=== PATIENT | female | born 1975 | race Caucasian/White ===

== ENCOUNTER → 2017-05-09 | Outpatient (CLI) | payer BC, OTHER | LOC: FIMAGING 14:28 | PROVIDERS: ATTEND Nurse Practitioner Adult Health | DX: R31.9 Hematuria, unspecified (principal); R10.9 Unspecified abdominal pain ==

== ENCOUNTER 2018-02-18 12:44 | Emergency (ER) | payer OTHER ==
[2018-02-19] MEDS ORDERED: HYDROmorphONE/DILAUDID 1 MG/ML INJ ONE (03:15)
[2018-02-19 06:09] VITALS: BP 109/78
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
== END 2018-02-18 13:50 | disposition home or self-care (01) ==
LOC: MERGE 12:44
DX: R53.1 Weakness (principal); F41.0 Panic disorder [episodic paroxysmal anxiety]; F43.9 Reaction to severe stress, unspecified
CPT/HCPCS: 82435-PO; 82565-PO; 82947-PO; 84132-PO; 84295-PO; 84520-PO; 85014-PO; J1170

== ENCOUNTER 2018-09-19 08:03 | Observation (INO) | payer OTHER ==
[2018-09-19 08:36] LABS: PLATELET COUNT 268 10^3/uL (150-400)
[2018-09-19] MEDS ORDERED: FAMOTIDINE 20 MG TAB PO ONE (08:49)
--- NOTE | 2018-09-19 08:58 | EDPHY ---
H & P Stated Complaint: SOB, Tachycardia Time Seen by Provider: 09/19/18 08:22 HPI/ROS: CHIEF COMPLAINT: Rapid heart HISTORY OF PRESENT ILLNESS: This is a 43-year-old female with history of factor 5 Leiden, PE, and tachycardia for which she underwent an ablation in 1991 and again in 2012. She is on Eliquis and is compliant with her medication. She notes a rapid heart rate over the past week. Five days ago she was experiencing chest pain, nausea, and diaphoresis. She saw her primary care physician who referred her to Cardiology. She saw Dr. Paez, cardiology, who ordered blood work and Holter monitor that is scheduled to be placed at 1:00 p.m. today. She has subsequently been notified that her TSH is low at 0 0.016 ( free T4 has been ordered). She has not established care with an liquid center assembler in this area. She presents today with persistent rapid heart rate. She says that she has had heart rates at home up to the 150s. She is experiencing substernal and left- sided upper chest pain, different from chest pain that she has experienced in the past with either PE or tachycardia. She feels short of breath. The pain is not pleuritic. She has had a mild cough. Last night she noticed some blood that she thought might be coming from her mouth but now wonders whether she could of been coughing up blood. She tells me that in the past she has had an elevated ADAN. REVIEW OF SYSTEMS: A ten system review of systems was performed and is negative with the exception of the items mentioned in the HPI. Past medical history: 1. Factor 5 Leiden 2. PE 1-1/2 years ago 3. TIA 4. Tachyarrhythmia 5. Anxiety disorder Past surgical history: 1. Cardiac ablation x2 2. Left knee meniscectomy 3. Left inguinal hernia repair Family history: Social history: She lives with her . They moved to [place] from [place], [place] about a year and half ago. She does not use tobacco products. She rarely drinks alcohol. General Appearance: Alert. Vital signs reviewed. Eyes: Pupils equal and round, no conjunctival injection, no discharge. Anicteric. I do not appreciate proptosis. ENT, Mouth: Mucous membranes are moist, no oropharyngeal erythema or edema. Neck: No lymphadenopathy, supple. Respiratory: Lungs are clear to auscultation; no wheezes, rales, or rhonchi. Cardiovascular: Tachy at around 110, regular; no murmur, rub, or gallop. Gastrointestinal: Abdomen is soft and nontender, no masses or organomegaly, bowel sounds normal. Skin: Warm and dry, no rashes on exposed skin, normal color. Back: Nontender to palpation over the thoracolumbar spine. No CVAT. Extremities: No lower extremity edema, no calf tenderness or swelling. Neurological: Alert and oriented. Moving all four extremities easily and equally. Cranial nerves II through XII are examined and are intact (visual acuity not tested). Sensation is intact to light touch over all 4 extremities. Psychiatric: Normal affect. - Personal History Current Tetanus/Diphtheria Vaccine: Yes Current Tetanus Diphtheria and Acellular Pertussis (TDAP): Yes - Medical/Surgical History Hx Asthma: No Hx Chronic Respiratory Disease: No Hx Diabetes: No Hx Cardiac Disease: Yes Hx Renal Disease: No Hx Cirrhosis: No Hx Alcoholism: No Hx HIV/AIDS: No Hx Splenectomy or Spleen Trauma: No Other PMH: PE, TIA,DVT, CARDIAC AEBLATION-AFIB,SVT, L HERNIA REPAIR, anxiety/ panic, clotting disorder factor 5 ley[place] - Social History Smoking Status: Never smoked Constitutional: Initial Vital Signs Temperature (C) 37.2 C 09/19/18 08:11 Heart Rate 139 H 09/19/18 08:11 Respiratory Rate 20 09/19/18 08:11 Blood Pressure 127/75 H 09/19/18 08:11 O2 Sat (%) 96 09/19/18 08:11 O2 Delivery Mode Room Air Allergies/Adverse Reactions: levofloxacin [From Levaquin] Allergy (Severe, Verified 09/19/18 11:19) codeine Allergy (Intermediate, Verified 09/19/18 11:19) Vomiting Sulfa (Sulfonamide Antibiotics) Allergy (Intermediate, Verified 09/19/18 11:19) Vomiting Home Medications: Medication Instructions Recorded Apixaban [Eliquis] 2.5 mg PO DAILY 09/19/18 Medical Decision Making ED Course/Re-evaluation: Persistent tachyarrhythmia patient with history of SVT status post ablation x2. She also has history of factor 5 Leiden, PE, and recent lab work that suggests hyperthyroidism. It is unclear whether her rapid heart rate is indicative of hyperthyroid, recurrence of tachyarrhythmia, or PE. She does not use stimulants, does not appear dehydrated, no evidence of blood loss. CT angiogram obtained to rule out PE. No PE seen. TSH repeated here and low at 0.015. I reviewed the TSH and the free T4 that were obtained by her dental secretary. Consistent with hyperthyroidism. Heart rate has been over 100 during her stay in the emergency department but not over 110. Heart rate has been regular. EKG reviewed. Troponin within normal limits. CBC and chemistries reviewed and unconcerning. I do not suspect infection/fever or volume depletion as the explanation for her elevated heart rate. Patient would like to establish care with a dental secretary and liquid center assembler from [facility]. I spoke with Dr. Niurka Ramos, on-call for Cardiology, and she agrees that admission is appropriate in this setting. Cardiology will consult. The patient is being admitted to the hospitalist service. - Data Points Laboratory Results: Laboratory Results 09/19/18 08:20 09/19/18 08:20 Medications Given: Acetaminophen (Tylenol) 650 mg PO Q4 PRN PRN Reason: Pain, Mild/Fever, Can Take PO Stop: 03/18/19 15:14 Last Admin: 09/20/18 08:02 Dose: 650 mg Apixaban (Eliquis) 2.5 mg PO DAILY ABRAHAM Stop: 03/19/19 08:59 Last Admin: 09/20/18 08:03 Dose: 2.5 mg Atenolol (Tenormin) 25 mg PO DAILY ABRAHAM Stop: 03/18/19 14:59 Last Admin: 09/20/18 09:30 Dose: 25 mg Sodium Chloride (Ns) 1,000 mls @ 100 mls/hr IV CONT ABRAHAM Stop: 03/18/19 15:14 Last Admin: 09/19/18 16:06 Dose: 1,000 mls Methimazole (Tapazole) 5 mg PO DAILY ABRAHAM Stop: 03/18/19 15:14 Last Admin: 09/20/18 08:57 Dose: 5 mg Ondansetron HCl (Zofran) 4 mg IVP Q4 PRN PRN Reason: Nausea/Vomiting, Can't Take PO Stop: 03/18/19 15:14 Last Admin: 09/20/18 04:53 Dose: 4 mg Discontinued Medications Acetaminophen (Tylenol) 650 mg PO EDNOW ONE Stop: 09/19/18 09:35 Last Admin: 09/19/18 09:39 Dose: 650 mg Cosyntropin (Cortrosyn Syringe) 0.25 mg IVP DAILY@0600 ONE Stop: 09/20/18 06:01 Last Admin: 09/20/18 04:47 Dose: 0.25 mg Famotidine (Pepcid) 20 mg PO EDNOW ONE Stop: 09/19/18 08:50 Last Admin: 09/19/18 08:57 Dose: 20 mg Point of Care Test Results: Chemistry 09/19/18 08:24 POC Troponin I 0.00 ng/mL ng/mL (0.00-0.08) Departure - Departure Disposition: [facility] Inpatient Acute Clinical Impression: Supraventricular tachycardia, Hyperthyroidism determined by thyroid function test Condition: Good
[2018-09-19] MEDS ORDERED: ACETAMINOPHEN 325 MG TAB PO ONE (09:34)
[2018-09-19] MEDS ORDERED: IOPAMIDOL (ISOVUE 370) 100 ML BTL IV ONE (11:06)
[2018-09-19] MEDS ORDERED: ONDANSETRON 4 MG/2 ML VIAL IVP PRN (15:15)
[2018-09-19] MEDS ORDERED: NS 1,000 ML IV SCH (15:15)
--- NOTE | 2018-09-19 15:59 | GHP ---
DATE OF ADMISSION: 09/19/2018 CHIEF COMPLAINT: Palpitations. HISTORY: The patient is a 43-year-old female who comes to the emergency room complaining of chest pa in and fast heart rate. Her heart rate at home has been up to 130-150. She has a history of SVT, st atus post previous ablation. She has been having increasing symptoms over the last week. She has he at intolerance. She feels like an elephant is sitting on her chest. She describes it as a crushing, burning nonpleuritic pain. She has increased urinary frequency. She denies any weight gain or weig ht loss. There have been no bowel changes. She complains of heat intolerance and light sensitivity. Her hair is falling out. She has noticed her skin is tougher. Her throat feels raw. She has been having headache and vision changes, lots of light sensitivity. Coworkers have told her her right ey willy droops at times. She has severe headaches that sometimes wake her up from sleep. PAST MEDICAL HISTORY: 1. Heterozygous factor V Leiden with pulmonary embolus. 2. SVT, status post ablation x2. 3. Transient ischemic attack. 4. Anxiety. 5. Brain cyst. 6. Positive ADAN. 7. Viral encephalitis. 8. Ashkenazi Cheondoism heritage. PAST SURGICAL HISTORY: Left inguinal hernia. MEDICATIONS: Please see computerized record for full details. ALLERGIES: Levaquin and sulfa. SOCIAL HISTORY: No smoking. No alcohol. She lives with her . REVIEW OF SYSTEMS: Complete review of systems obtained. Review of systems negative regarding consti tutional, HEENT, GI, pulmonary, cardiovascular, , hematology, skin, musculoskeletal, endocrine, psy ch, except for positives and negatives as noted in HPI. FAMILY HISTORY: Her parents used a sperm donor in her conception. She has since done genetic testin g to find out that the donated sperm has Ashkenazi Cheondoism genetic traits. Her mom is [place]. PHYSICAL EXAMINATION: GENERAL: Well-developed, well-nourished female, in no acute distress. VITAL SIGNS: Temperature is 37.4, pulse 91, blood pressure 112/73, sat 96% on room air. EYES: Normal con junctivae. Pupils equal and reactive to light. Possible proptosis. ENT: Normal ears and nose. He aring intact. Normal lips and teeth. Oropharynx moist. NECK: Trachea midline. Positive thyromega ly. CHEST: Normal respiratory effort. LUNGS: Clear to auscultation bilaterally. CARDIOVASCULAR: Regular rate and rhythm. No murmur. No lower extremity edema. ABDOMEN: Soft, nontender. No hepat osplenomegaly. SKIN: Warm, dry, intact. No rash. MUSCULOSKELETAL: No cyanosis or clubbing. Stre ngth 5/5 upper and lower extremities. NEURO: Cranial nerves intact. Normal sensation to light touc h. PSYCH: Alert and oriented x3. Normal mood and affect. Normal judgment and insight. Normal nathalie ry. LABORATORY DATA: White count 6.5, hematocrit 42.7, platelets 268. Sodium 138, potassium 4.3, chlori de 101, bicarb 24, BUN 15, creatinine 0.66, glucose 132. Troponin negative. TSH is less than 0.015. Urinalysis is negative. Free T4 done as an outpatient was 2.57. EKG viewed by me. My personal in terpretation is normal sinus rhythm, no ST-T wave changes. CT angiogram of chest is negative for PE. ASSESSMENT/PLAN: 1. Hyperthyroidism. I suspect she may have Graves disease given her eye changes. Will check a thyr otropin receptor antibody and a thyroid ultrasound. Will start her on a low-dose beta taina for sy mptom control, atenolol 25 mg p.o. daily. She just received an IV contrast dose for her CT angiogram of chest to rule out pulmonary embolism, and I have concerns that this iodine load may throw her int o a thyroid storm. Will start her on methimazole now. She should follow up with Endocrinology as an outpatient for radioactive iodine. Will check a test. 2. Headaches with eyelid drooping. This is a concerning history. She does have an unclear history of a brain cyst. Will check an MRI of the brain. 3. Supraventricular tachycardia, status post ablation. We will watch her on telemetry. It is uncle ar if the current tachycardia episodes are recurrences of supraventricular tachycardia versus a sinus tachycardia driven by her underlying hyperthyroidism. We will check an echo. 4. History of pulmonary embolus. She has known factor V Leiden heterozygous. Will continue Eliquis . COR STATUS: Full. ADMISSION STATUS: Will admit to observation. We will re-evaluate her tomorrow regarding ongoing nee d for hospitalization. DVT PROPHYLAXIS: She is already on Eliquis. /[id number]/MODL
[2018-09-19] MEDS: ATENOLOL 25 MG TAB PO SCH (16:03)
[2018-09-19] MEDS: METHIMAZOLE 5 MG TAB PO SCH (16:12)
--- NOTE | 2018-09-19 16:37 | CPEKG ---
Test Reason : OPEN Blood Pressure : / mmHG Vent. Rate : 108 BPM Atrial Rate : 108 BPM P-R Int : 125 ms QRS Dur : 073 ms QT Int : 313 ms P-R-T Axes : 067 047 037 degrees QTc Int : 420 ms Sinus tachycardia Confirmed by Cristina Nobles ([id number]) on 09/19/2018 4:36:47 PM Referred By: Confirmed By:Cristina Nobles
--- NOTE | 2018-09-19 16:38 | ECHO ---
[email or web address] [address] [address] Main: [phone] Fax: [email or web address] Echocardiogram Name: KIANA CALIXTO MR#: [id number] Study Date: 09/19/2018 Study Time: 03:49 PM Date of : 1975 Age: 43 year(s) Height: 170.2 cm (67 in.) Weight: 74.84 kg (165 lb.) BSA: 1.86 m2 Gender: Female Examination: Echo Indication: Supraventricular Tachycardia Image Quality: Adequate Contrast: Requested by: Bell Nicholas BP: 112 mmHg/73 mmHg Heart Rate: Rhythm: Indication: Supraventricular Tachycardia Procedure Staff Baseball Scout: Kim Main [facility] Reading Physician: Chetan Burciaga MD Requesting Provider: Conclusions: No pericardial effusion. Preserved LV systolic function with ejection fraction of 66%. Right ventricular systolic pressure 32 mm of mercury. No significant valvular abnormalities by Doppler or 2 dimensional study. Measurements: Chambers Valvular Assessment AV/MV Valvular Assessment TV/PV Normal Normal Normal Name Value Range Name Value Range Name Value Range Ao Ximena (MM): 2.6 cm (2.2 cm-3.7 AV Vmax: 1.24 m/s (1 m/s-1.7 TR Vmax: 2.59 mm/s ( - ) cm) m/s) TR PGmax: 27 mmHg ( - ) IVSd (2D): 0.8 cm (0.6 cm-1.1 AV maxP mmHg ( - ) syst. PAP: 32 mmHg ( - ) cm) LVOT Vmax: 0.92 m/s (0.7 m/s-1.1 PV Vmax: 1.03 m/s (0.6 m/s-0.9 LVDd (2D): 4.2 cm (3.9 cm-5.3 m/s) m/s) cm) MV E Vmax: 0.58 m/s ( - ) PV PGmax: 4 mmHg ( - ) LVDs (2D): 2.8 cm (2.1 cm-4 MV A Vmax: 0.43 m/s ( - ) cm) MV E/A: 1.35 ( - ) LVPWd (2D): 0.8 cm ( - ) LVEF (BP): 66 % (>=55 %) RVDd(2D): 2.9 cm (1.9 cm-3.8 cmmm) Continued Measurements: Chambers Valvular Assessment AV/MV Valvular Assessment TV/PV Name Value Name Value Name Value LADs: 3.0 cm MV DecTime: 158 m/s CVP (est.): 5 mmHg LADs Lon.2 cm MV E' Septal: 0.09 m/s LA Area: 16.7 cm2 MV E/E' Septal: 6.50 LA Volume: 48 ml MV E/E' Lateral: 4.10 LA Volume Index: 25.8 ml/m2 Patient: KIANA CALIXTO Study Date: 09/19/2018 Page 1 of 2 03:49 PM TAPSE: 2.0 cm RA Area: 14.7 cm2 Findings: Left Ventricle: Normal size left ventricle. No LV hypertrophy. Normal global systolic LV function. EF is 66 %. No regional wall motion abnormality. Normal diastolic LV function. Right Ventricle: Normal size right ventricle. Left Atrium: The left atrium is normal in size. Right Atrium: The right atrium is normal in size. Mitral Valve: The mitral valve is normal in appearance and function. Trivial mitral valve regurgitation. No mitral stenosis is present. Aortic Valve: The aortic valve is tri-leaflet and functions normally. There is no aortic valve regurgitation. No aortic valve stenosis is present. Tricuspid Valve: The tricuspid valve is normal in appearance and function. Trivial to mild tricuspid valve regurgitation. Right ventricular systolic pressure measures 32mmHg. Borderline elevated pumonary artery pressure. Pulmonic Valve: The pulmonic valve is normal in appearance and function. There is no pulmonic regurgitation seen. Aorta: The aorta is normal. Normal size aortic root measuring 2.6 cm. IVC: Normal size and course of the IVC. Pericardium: No pericardial effusion. (No Signature Object) Patient: KIANA CALIXTO Study Date: 09/19/2018 Page 2 of 2 03:49 PM [id number]
[2018-09-19] MEDS ORDERED: GADOBUTROL 10 ML VIAL IVP ONE (18:03)
[2018-09-19] MEDS: ACETAMINOPHEN 325 MG TAB PO PRN (23:14)
--- NOTE | 2018-09-20 05:52 | GCON ---
DATE OF CONSULTATION: 09/19/2018 PRIMARY CREPE MACHINE OPERATOR: Dr. Carlene Gutierrez. CHIEF COMPLAINT: Chest pain and tachycardia. HISTORY OF PRESENT ILLNESS: We were asked by Dr. Nicholas to visit with Alysa. The patient is a josse y pleasant 43-year-old female with a history of atrial arrhythmia. Her previous cardiology care has been in [place], [place]. In 1991, she had SVT ablation. She then had an ablation for atrial tachycard ia in 2012. She reports no problems with coronary arteries or valves. Other history includes factor 5 Leiden, complicated by TIA and pulmonary embolism. For the past 6 months she has had intermittent chest discomfort and tachycardia. Initially, she thou ght this may be a resurgence of arrhythmia, but the symptoms were somewhat different. She has felt t ired and anxious, but she has not had a prior history of anxiety disorder. Over the past week or so she has felt worse. Her chest pain is described as pressure as well as a se nsation of burning into her throat. She feels that her heart is pounding. Even minimal activity cau ses an elevated heart rate up to 150 beats per minute. She has felt dyspneic. She has described hot flashes and overall fatigue. Her exercise tolerance is poor. She was seen early this week at the [facility] with some blood work and plans for a Armand r monitor. Her TSH came back quite low. Because her symptoms were worsening, she presented to the E [facility] today. She has been in sinus rhythm and sinus tachycardia, but TSH is indeed low with elevated sotero e T4 and free T3. She is admitted for further management and evaluation. REVIEW OF SYSTEMS: A 10-point review of systems is performed, notable for that which is outlined abo ve. Additionally, right before she reports an episode of right eyelid drooping with a visu al field cut and she felt that her face was drooping. This has resolved. She has also had headache. Otherwise, a full 10-point review of systems is negative. ALLERGIES: Levofloxacin, codeine, and sulfa. PAST MEDICAL HISTORY: 1. Atrial arrhythmia status post ablation x2 as detailed above. 2. Factor 5 Leiden with history of PE and stroke. 3. Seizure disorder during . 4. Migraine headaches. PAST SURGICAL HISTORY: 1. Inguinal hernia repair. 2. Left knee meniscus repair. OUTPATIENT MEDICATIONS: Eliquis 2.5 mg b.i.d. SOCIAL HISTORY: The patient is . She has a stepson. She works in [employer]. She drinks alcohol rarely. She does not use illicit drugs. She does not smoke cigarettes. FAMILY HISTORY: Negative for premature coronary disease, sudden cardiac , or clotting disorder. PHYSICAL EXAM: VITAL SIGNS: Blood pressure 100/74, heart rate has ranged from 139 to 91, respirator y rate is 14. Oxygen saturation 96% on room air. She is afebrile. GENERAL: Well-appearing, middle -aged female, in no acute distress. HEENT: Sclerae are clear and free of jaundice. Mucous membrane s are moist. Normocephalic, atraumatic. Normal dentition. CARDIOVASCULAR: JVP is less than 10, ca rotids equal and 2+ bilaterally without bruit. Regular rate and rhythm without murmur, rub, or arevalo p. LUNGS: Clear to auscultation bilaterally without wheezes, rhonchi, or rales. EXTREMITIES: Warm and well perfused without cyanosis, clubbing, or edema. NEUROLOGIC: Alert and oriented x3 without gross focal neurologic deficits. Appropriate mood and affect. DATA: CBC is essentially normal, TSH is less than 0.015, free T4 elevated at 2.65, and free T3 is 10 .2, elevated at 10.2. Troponin negative. Magnesium 1.9. Basic metabolic panel is normal except for glucose of 132. Urine test is negative. Urinalysis is normal. EKG shows sinus tachycard ia without ischemic changes. CT angiogram of the chest shows no pulmonary embolism. ASSESSMENT AND PLAN: A 43-year-old female with a history of atrial arrhythmia, status post ablation (SVT/atrial tachycardia). She also has factor 5 Leiden. She is now admitted with signs and symptoms consistent with hyperthyroidism. 1. Hyperthyroidism: She has been appropriately started on atenolol and methimazole by Dr. Nicholas. C ortisol, RF, ESR, thyrotropin antibodies, C-REACTIVE PROTEIN, and ADAN are pending. Thyroid ultrasoun d is pending. Agree with beta blockers. I have seen sinus rhythm and sinus tachycardia but no other rhythms thus far. Follow on telemetry. 2. History of atrial arrhythmias: As mentioned, she has had sinus rhythm and sinus tachycardia here . I would recommend outpatient Holter monitoring once her thyroid status is stable and follow up wit h us after that. I have ordered an echocardiogram with bubble study. She has a history of migraines and TIA, so I would like to make sure that she does not have a PFO or ASD. This will be done tomorr ow. 3. History of left eyelid drooping and left facial droop. A brain MRI has been ordered. Of note, s he did have normal CT angiogram of the head and neck in January and a head CT in February with no acute findi ngs, but a left occipital parafalcine sign arachnoid cyst. Currently, she does not have any gross fo faisal neurological deficits or symptoms. Thank you for allowing us to participate in Alysa's care. We will follow with you. /[id number]/MODL
[2018-09-20] MEDS ORDERED: COSYNTROPIN 0.25 MG/2 ML SYRINGE IVP ONE (06:00)
[2018-09-20] MEDS: ACETAMINOPHEN 325 MG TAB PO PRN (08:02)
[2018-09-20] MEDS: METHIMAZOLE 5 MG TAB PO SCH (08:57)
[2018-09-20] MEDS: ATENOLOL 25 MG TAB PO SCH ×2 (08:58→09:30)
[2018-09-20] MEDS ORDERED: APIXABAN 2.5 MG TAB PO SCH (09:00)
--- NOTE | 2018-09-20 11:17 | PDCARPN ---
Cardiology Progress Note Chief Complaint: Chest pain, tachycardia Assessment/Plan: Assessment and Plan 1. Hyperthyroidism: undetectable TSH with sinus tachycardia. She will continue atenolol and methimazole as started by Dr. Nicholas. No additional arrhythmia noted on telemetry overnight 2. History of atrial arrhythmia: s/p ablation x2 in [place], most recently in 2014. No known recurrence of SVT since that time. Echo with bubble study planned for today as ordered by Dr. Ramos. She will follow-up with Dr. Ramos 2- weeks post discharge for further evaluation. For recurrent arrhythmia, she will follow-up with our EP clinic 09/20/18 11:33 Subjective: No issues overnight. She can tell her HRs are a bit higher this morning before her atenolol dose Time Spent with Patient: greater than 25 minutes Time Spent with Patient: Greater than 25 minutes spent on this patients care, greater than 50% of time spent counseling, educating, and coordinating care regarding the above mentioned plan. Objective: Vital Signs (8 Hrs) Temp Pulse Resp BP Pulse Ox 09/20/18 10:30 88 95/55 L 09/20/18 09:30 94 93/61 L 09/20/18 08:55 91 20 93/61 L 92 09/20/18 07:37 37.1 C 83 21 H 100/56 L 91 L Intake/Output (24 Hrs) 09/19/18 09/20/18 09/21/18 05:59 05:59 05:59 Intake Total 1120 Output Total 2400 800 Balance -1280 -800 Intake: Oral (ml) 1120 Output: Urine (ml) 2400 800 Toilet 2400 800 Other: Weight 74.843 kg Number of Voids 2 Toilet 4 Number of Stools Toilet 0 Result Diagrams: 09/20/18 04:41 09/19/18 08:20 Cardiac Labs: Cardiac Lab Results (72 Hrs) 09/20/18 04:41 Troponin I < 0.012 Telemetry: No arrhythmia on telemtry overnight - Physical Exam Constitutional: WDWN, healthy appearing, no apparent distress Ears, Nose, Mouth, Throat: moist mucous membranes, no oral ulcers, no thrush Cardiovascular: regular rate and rhythm, no murmurs, no rubs, no gallops Peripheral Pulses: 2+: dorsalis-pedis (R), dorsalis-pedis (L) Respiratory: clear to auscultate bilat, no crackles, no wheezes Gastrointestinal: normoactive bowel sounds, no tenderness, no masses Skin: no rashes, no abrasions, no ulcers, warm, no edema Neurologic: AAOx3, CN II-XII grossly intact Psychiatric: cooperative, interactive, following commands, not anxious ICD10 Worksheet Patient Problems: Problems Problem Status Onset Hyperthyroidism determined by thyroid function test Acute Supraventricular tachycardia Acute
[2018-09-20 11:23] VITALS: BP 98/58
--- NOTE | 2018-09-20 13:02 | ASMTLACE ---
WOODY Length of stay for Answers: 1 day current admission Acuity / Level of Answers: No Care: Did the patient have an inpatient admission? Comorbidities - select Answers: Cerebrovascular disease all that apply (CVA, TIA, aneurysms, vasc ular dementia) Other Notes: Hx SVT, Factor V Leiden, prior PE, brain cyst, positive ADAN # of Emergency department Answers: 1-2 visits in the last 6 months Social determinants Answers: Mental health diagnosis (anxiety, depression, pers onality disorders, etc.) Score: 7 Date Signed: 09/20/2018 01:02 PM Electronically Signed By:Stefanie Pollock RN
--- NOTE | 2018-09-20 13:06 | ASDISCHSUM ---
Discharge Information Plan Status:Home with No Needs Medically Cleared to Leave:09/19/2018 Discharge Date:09/19/2018 CM D/C Disposition:Home, Routine, Self-Care ADT D/C Disposition:Home, Routine, Self-Care Projected Discharge Date:09/19/2018 Transportation at D/C:Family Discharge Delay Reason: Follow-Up Date:09/19/2018 Discharge Slot:2 - 12:01 pm - 18:00 pm Final Diagnosis:Hyperthyroidism, tachycardia, chest pain Placement Information Patient Contact Information Contact Name:DELMAR Relationship: Address:[address] Work Phone: Nichole:ALBINO Alternate Phone: [facility]/Zip Code:[place] [address] Email: Financial Information Financial Class:BC Primary Plan Desc:[facility] [employer] [facility] Primary Plan Number:[id number] Secondary Plan Desc: Secondary Plan Number: Assessment Information LACE LACE Length of stay for Answers: 1 day current admission Acuity / Level of Answers: No Care: Did the patient have an inpatient admission? Comorbidities - select Answers: Cerebrovascular disease all that apply (CVA, TIA, aneurysms, vasc ular dementia) Other Notes: Hx SVT, Factor V Leiden, prior PE, brain cyst, positive ADAN # of Emergency department Answers: 1-2 visits in the last 6 months Social determinants Answers: Mental health diagnosis (anxiety, depression, pers onality disorders, etc.) Score: 7 Date Signed: 09/20/2018 01:02 PM Electronically Signed By:Stefanie Pollock RN [facility] CM Progress Note CM Note CM Note Notes: Reviewed chart, spoke with Dr. Nicholas. Pt admitted for tachycardia, hyperthyroidism, chest pain. History includes SVT with two ablations, palpitations, Factor V Leiden with prior PE, TIA, brain cyst, positive ADAN, and anxiety. Pt is and lives with her spouse in [place]. Pt to discharge home independently with family support and no identified needs. No therapies ordered. Pt to follow up as directed. No IM/RAINES forms signed, not applicable. CM available for any further issues or concerns. Discharge Plan: Home independently with family support Date Signed: 09/20/2018 01:06 PM Electronically Signed By:Stefanie Pollock RN Intervention Information
[2018-09-20] MEDS ORDERED: PNEUMOCOCCAL 0.5ML VACCINE VIAL (PNEUMOVAX 23) IM ONE (14:39)
--- NOTE | 2018-09-20 17:10 | ECHO ---
[email or web address] [place] [id number] Main: [phone] Fax: Transthoracic Echocardiogram Name: KIANA CALIXTO MR#: [id number] Study Date: 09/20/2018 Study Time: 01:00 PM Date of : 1975 Age: 43 year(s) Height: ( ) Weight: ( ) BSA: Gender: Female Examination: Echo with Agitated Saline Indication: r/o PFO Image Quality: Adequate Contrast: I.V. dose of agitated saline Requested by: Niurka Ramos BP: / Heart Rate: Rhythm: Indication: r/o PFO Procedure Staff Home Decorator: Kim Main [facility] Reading Physician: Alen Wallace MD Requesting Provider: Conclusions: An agitated saline study was performed and was negative at rest and positive with Valsalva maneuver. Limited study Measurements: Chambers Valvular Assessment AV/MV Valvular Assessment TV/PV Normal Normal Normal Name Value Range Name Value Range Name Value Range Continued Measurements: Findings: Left Atrium: An agitated saline study was performed and was negative at rest and positive with Valsalva maneuver. (No Signature Object) Patient: KIANA CALIXTO Study Date: 09/20/2018 Page 1 of 1 01:00 PM [id number]
--- NOTE | 2018-09-21 05:15 | GDS ---
DISCHARGE DIAGNOSES: 1. Hyperthyroidism, probable Graves disease. 2. Sinus tachycardia due to hyperthyroidism. 3. Benign arachnoid cyst in occipital lobe of the brain. 4. History of supraventricular tachycardia, status post ablation x2. 5. History of pulmonary embolus with known factor V Leiden heterozygous mutation. 6. History of transient ischemic attack. 7. Positive bubble study with Valsalva. 8. History of positive ADAN. HISTORY: Alysa is a 43-year-old female with a history of SVT requiring 2 previous ablations when she lived in [place], [place]. She presented to the hospital with recurrence of palpitations. She was initiating establishment with Pallavi Hernandez and Dr. Wallace as an outpatient. Symptoms got severe with heart rates up to 130-150 at home, so she presented to the emergency room. She was found to have an undetectable TSH and a free T3 of 10, free T4 of 2.65. She also has multiple other vague complaints, all consistent with a diagnosis of hyperthyroidism. She had some vision changes and eyelid changes, and I do suspect she has Graves disease. A Thyrotropin receptor antibody was sent and is pending. Thyroid ultrasound was negative. She was initiated on atenolol and methimazole, and feels much better already after only 1 dose. Telemetry monitoring overnight did not show any tachyarrhythmias. Dr. Niurka Ramos saw her in consultation. We do suspect her palpitations are all due to hyperthyroidism rather than recurrence of SVT. Echocardiogram was unremarkable. Dr. Ramos ordered a bubble study that was negative, except for during Valsalva. She does have a history of TIA, but she is already on Eliquis. She can see Endocrinology as an outpatient to consider radioactive iodine if Graves disease is confirmed with the pending thyrotropin receptor antibody. DISCHARGE MEDICATIONS: Please see computerized record for full detailed list. New medications: 1. Atenolol 25 mg p.o. daily. 2. Methimazole 5 mg p.o. daily. ADDITIONAL DISCHARGE INSTRUCTIONS: 1. Patient is referred to Dr. Isamar Campos to establish primary care. 2. Follow up with Dr. Niurka Ramos regarding cardiology needs. There is no plan for any further cardiac workup until her thyroid is normalized. 3. Thyrotropin antibody and ADAN are pending at discharge. She will follow up these labs with Dr. Campos. 4. Follow up with Endocrinology in 4-6 weeks for treatment of likely Graves disease with radioactive iodine. Greater than 30 minutes' time was spent arranging this discharge. Patient was seen and examined by me on the day of discharge. /[id number]/MODL [email or web address]
== END 2018-09-20 15:07 | disposition home or self-care (01) ==
LOC: F3E 12:22
PROVIDERS: ADMIT Internal Medicine; ATTEND Internal Medicine
DX: R07.89 Other chest pain (principal); R00.0 Tachycardia, unspecified; D68.2 Hereditary deficiency of other clotting factors; E05.90 Thyrotoxicosis, unspecified without thyrotoxic crisis or storm; Z23 Encounter for immunization; Z86.711 Personal history of pulmonary embolism; Z86.718 Personal history of other venous thrombosis and embolism
CPT/HCPCS: 70553; 71275; 76536; 90471; 93005; 93306; 96375; 99285; G0378; 84481-90; 84484-ER; A9585; G0008; G0009; J0834; J2405; Q9967